=== PATIENT | male | born 1950 | race Caucasian/White ===

== ENCOUNTER 2018-06-11 16:14 | Emergency (ER) | payer OTHER ==
[~2018-06-11] VITALS: Ht 188 cm; Wt 108.0 kg
[2018-06-11 16:22] VITALS: BP 144/84
== END 2018-06-11 17:05 | disposition home or self-care (01) ==
LOC: ED 16:45
DX: H60.11 Cellulitis of right external ear (principal); I10 Essential (primary) hypertension
CPT/HCPCS: 99283